=== PATIENT | male | born 1985 | race Caucasian/White ===

== ENCOUNTER 2019-10-20 08:56 | Emergency (ER) | payer BC ==
[2019-10-20] MEDS ORDERED: TORAdol 30 mg Injection ONE (09:09)
[2019-10-20] MEDS ORDERED: Zofran 4 MG/2 ML VIAL ONE (09:09)
[2019-10-20] MEDS ORDERED: Hydromorphone 1 mg/ml Ampule ONE (09:09)
[2019-10-20] MEDS ORDERED: TORAdol 30 mg Injection IV ONE (09:10)
[2019-10-20] MEDS ORDERED: Zofran 4 MG/2 ML VIAL IV ONE (09:10)
[2019-10-20] MEDS ORDERED: Sodium Chloride 0.9% 1000 ML 1,000 ML IV STA (09:12)
[2019-10-20] MEDS ORDERED: Hydromorphone 1 mg/ml Ampule IV ONE (09:14)
[2019-10-20] MEDS ORDERED: Sodium Chloride 0.9% 1000 ML 1,000 ML ONE (09:15)
--- NOTE | 2019-10-20 09:32 | ERPHSYRPT ---
- History of Present Illness Time Seen by Provider: 10/20/19 09:05 Patient Subjective Stated Complaint: Pt woke up around 0730 in severe pain, went to the restroom and had a bowel movement but did not have any relief, pts pain started in his left lateral back and has moved down to his groin and states that it feels like someone is squeezing his testacles Triage Nursing Assessment: Pt brought to the ER by his , pt in severe pain rolling all over the bed holding his testacles, hypertensive, bowel sounds heard in all 4, denies any problems with urinating, bowel movement this am, no hx of kidney stones, rates pain 9.5/10, pale skin Physician History: Patient is a 34-year-old white male with no history of urinary calculi who presents with sudden onset of severe colicky pain in the left flank radiating into the testicular area at 7:40 AM this morning. Timing/Duration: today Activities at Onset: sleep Quality: stabbing Abdominal Pain Onset Location: flank (L) Pain Radiation: flank, groin Severity of Pain-Max: severe Severity of Pain-Current: severe Modifying Factors: Improves With: nothing Associated Symptoms: nausea, testicular pain Previous symptoms: no prior history Allergies/Adverse Reactions: bismuth subsalicylate [From Pepto-Bismol] Allergy (Verified 10/20/19 09:07) - Review of Systems Constitutional: No Fever, No Chills Eyes: No Symptoms Ears, Nose, & Throat: No Symptoms Respiratory: No Cough, No Dyspnea Cardiac: No Chest Pain, No Edema, No Syncope Abdominal/Gastrointestinal: Abdominal Pain, Nausea, No Vomiting, No Diarrhea Genitourinary Symptoms: Flank Pain Musculoskeletal: No Back Pain, No Neck Pain Skin: No Rash Neurological: No Dizziness, No Focal Weakness, No Sensory Changes Psychological: No Symptoms Endocrine: No Symptoms All Other Systems: Reviewed and Negative - Past Medical History Pertinent Past Medical History: No - Past Surgical History Past Surgical History: No - Social History Smoking Status: Current every day smoker Exposure to second hand smoke: Yes Drug Use: none Patient Lives Alone: No - Nursing Vital Signs Nursing Vital Signs: Initial Vital Signs Temperature 97.7 F 10/20/19 08:59 Pulse Rate 85 10/20/19 08:59 Blood Pressure 155/91 10/20/19 08:59 O2 Sat by Pulse Oximetry 100 10/20/19 08:59 Pain Scale Pain Intensity 0 - Physical Exam General Appearance: severe distress, alert Eye Exam: PERRL/EOMI, eyes nml inspection Ears, Nose, Throat Exam: normal ENT inspection, pharynx normal, moist mucous membranes Neck Exam: normal inspection, non-tender, supple, full range of motion Respiratory Exam: normal breath sounds, lungs clear, No respiratory distress Cardiovascular Exam: regular rate/rhythm, normal heart sounds Gastrointestinal/Abdomen Exam: soft, No tenderness, No mass Back Exam: normal inspection, normal range of motion, No CVA tenderness, No vertebral tenderness Extremity Exam: normal inspection, normal range of motion, pelvis stable Neurologic Exam: alert, oriented x 3, cooperative, normal mood/affect, nml cerebellar function, sensation nml, No motor deficits Skin Exam: normal color, warm, dry SpO2: 100 - Course Nursing assessment & vital signs reviewed: Yes - CT Exams Abdomen/Pelvis CT Interpretation: Tele-radiologist Report (Teleradiology says there is a 2 mm stone in the distal left ureter hydronephrosis) Ordered Tests: Active Orders 24 hr Category Date Time Status ABDOMEN AND PELVIS W/0 CONTRAS [CT] Stat Exams 10/20/19 09:13 Taken AMYLASE Stat Lab 10/20/19 09:30 Completed CBC W DIFF Stat Lab 10/20/19 09:30 Completed CMP Stat Lab 10/20/19 09:30 Completed LIPASE Stat Lab 10/20/19 09:30 Completed UA W/RFX UR CULTURE Stat Lab 10/20/19 11:34 Ordered Medication Summary Discontinued Medications Generic Name Dose Route Start Last Admin Trade Name Freq PRN Reason Stop Dose Admin Hydromorphone HCl Confirm 10/20/19 09:09 Hydromorphone 1 Mg/Ml Ampule Administered 10/20/19 09:10 Dose 1 mg .ROUTE .STK-MED ONE Hydromorphone HCl 1 mg 10/20/19 09:14 10/20/19 09:15 Hydromorphone 1 Mg/Ml Ampule IV 10/20/19 09:15 1 mg STAT ONE Administration Sodium Chloride 1,000 mls @ 999 mls/hr 10/20/19 09:12 10/20/19 10:29 Sodium Chloride 0.9% 1000 Ml IV 10/20/19 10:12 Infused .Q1H1M STA Infusion Sodium Chloride Confirm 10/20/19 09:15 Sodium Chloride 0.9% 1000 Ml Administered 10/20/19 09:16 Dose 1,000 mls @ ud .ROUTE .STK-MED ONE Ketorolac Tromethamine Confirm 10/20/19 09:09 Toradol 30 Mg Injection Administered 10/20/19 09:10 Dose 30 mg .ROUTE .STK-MED ONE Ketorolac Tromethamine 30 mg 10/20/19 09:10 10/20/19 09:15 Toradol 30 Mg Injection IV 10/20/19 09:11 30 mg STAT ONE Administration Ondansetron HCl Confirm 10/20/19 09:09 Zofran 4 Mg/2 Ml Vial Administered 10/20/19 09:10 Dose 4 mg .ROUTE .STK-MED ONE Ondansetron HCl 4 mg 10/20/19 09:10 10/20/19 09:15 Zofran 4 Mg/2 Ml Vial IV 10/20/19 09:11 4 mg STAT ONE Administration Lab/Rad Data: Laboratory Result Diagrams 10/20/19 09:30 10/20/19 09:30 Laboratory Results 10/20/19 10/20/19 Range/Units 09:30 09:30 WBC 7.4 (4.0-10.5) K/mm3 RBC 4.88 (4.1-5.6) M/mm3 Hgb 15.6 (12.5-18.0) gm/dl Hct 45.9 (42-50) % MCV 94.1 (78-100) fl MCH 32.0 (26-32) pg MCHC 34.0 (32-36) g/dl RDW 13.4 (11.5-14.0) % Plt Count 266 (150-450) K/mm3 MPV 9.9 (7.5-11.0) fl Gran % 42.8 (36.0-66.0) % Eos # (Auto) 0.20 (0-0.5) Absolute Lymphs (auto) 3.24 (1.0-4.6) Absolute Monos (auto) 0.74 (0.0-1.3) Lymphocytes % 44.0 (24.0-44.0) % Monocytes % 10.1 (0.0-12.0) % Eosinophils % 2.7 (0.00-5.0) % Basophils % 0.4 (0.0-0.4) % Absolute Granulocytes 3.15 (1.4-6.9) Basophils # 0.03 (0-0.4) Sodium 140 (137-145) mmol/L Potassium 4.5 (3.5-5.1) mmol/L Chloride 110 H (98-107) mmol/L Carbon Dioxide 22 (22-30) mmol/L Anion Gap 12.2 (5-15) MEQ/L BUN 17 (9-20) mg/dL Creatinine 0.99 (0.66-1.25) mg/dL Estimated GFR > 60.0 ML/MIN Glucose 124 H (74-106) mg/dL Calcium 9.6 (8.4-10.2) mg/dL Total Bilirubin 0.70 (0.2-1.3) mg/dL AST 24 (17-59) U/L ALT 22 (0-50) U/L Alkaline Phosphatase 51 (38-126) U/L Serum Total Protein 7.5 (6.3-8.2) g/dL Albumin 4.5 (3.5-5.0) g/dL Amylase 74 (30-110) U/L Lipase 84 (23-300) U/L - Progress Progress: improved - Departure Departure Disposition: Home Clinical Impression: Left ureteral stone Condition: Stable Critical Care Time: No Instructions: Kidney Stones (DC) Prescriptions: Hydrocodone/APAP 5-325 Tab^^^ [[place] 5-325 Tablet^^^] 1 tab PO Q6HPRN PRN #10 tablet MDD 6 PRN Reason: Pain Ondansetron HCl [Zofran] 4 mg PO Q6H #10 tablet Tamsulosin HCl 0.4 mg [Flomax 0.4 MG] 0.4 mg PO DAILY #10 cap
[2019-10-20 10:09] LABS: Absolute Neutrophil Ct (ANC) 3.15 (1.4-6.9); BASOPHIL % 0.4 % (0.0-0.4); Basophil (Absolute #) 0.03 (0-0.4); Eosinophil % 2.7 % (0.00-5.0); Hematocrit 45.9 % (42-50); Hemoglobin 15.6 gm/dl (12.5-18.0); Lymphocyte (Absolute #) 3.24 (1.0-4.6); Mean Cell Volume 94.1 fl (78-100); Mean Platelet Volume 9.9 fl (7.5-11.0); Monocyte (Absolute #) 0.74 (0.0-1.3); Monocytes % 10.1 % (0.0-12.0); Neutrophil % 42.8 % (36.0-66.0); Platelet Count 266 K/mm3 (150-450); Red Blood Count 4.88 M/mm3 (4.1-5.6); Red Cell Distribution Width 13.4 % (11.5-14.0); White Blood Count 7.4 K/mm3 (4.0-10.5)
[2019-10-20 10:22] LABS: ALBUMIN 4.5 g/dL (3.5-5.0); ALKALINE PHOSPHATASE 51 U/L (38-126); AMYLASE 74 U/L (30-110); ANION GAP 12.2 MEQ/L (5-15); BLOOD UREA NITROGEN 17 mg/dL (9-20); CHLORIDE 110 mmol/L (98-107); Calcium 9.6 mg/dL (8.4-10.2); Carbon Dioxide 22 mmol/L (22-30); Creatinine 1 0.99 mg/dL (0.66-1.25); Glucose 124 mg/dL (74-106); LIPASE 84 U/L (23-300); Potassium 4.5 mmol/L (3.5-5.1); SGOT/AST 24 U/L (17-59); SGPT/ALT 22 U/L (0-50); SODIUM 140 mmol/L (137-145); Total Protein 7.5 g/dL (6.3-8.2)
[2019-10-20 11:53] LABS: Appearance CLEAR (CLEAR); Bilirubin NEGATIVE (NEGATIVE); Blood NEGATIVE Ery/ul (0-5); Glucose NEGATIVE (NEGATIVE); Ketones NEGATIVE (NEGATIVE); Leukocyte Esterase NEGATIVE (NEGATIVE); Mucus SLIGHT /HPF (NEGATIVE); Nitrite NEGATIVE (NEGATIVE); Protein,Urine Dip 30 (Negative); Specific Gravity 1.026 (1.005-1.025); Urobilinogen 2 mg/dL (0-1); WBC 0-2 /HPF (0-5)
[2019-10-20 11:58] VITALS: BP 108/72; PULSE 68; O2SAT 98
[2019-10-20 12:02] LABS: Bacteria NONE SEEN /HPF (NEGATIVE)
--- NOTE | 2019-10-20 17:54 | XRAY ---
Indication: Left back/flank pain. Nausea and vomiting. Multiple contiguous axial images obtained through the abdomen and pelvis without contrast as ordered. Comparison: None Lung bases demonstrates bibasilar dependent atelectasis, left greater than right. Small right lower lobe bleb. No infiltrate or effusion. Heart is not enlarged. Noncontrasted stomach and bowel loops appear nonobstructed. Normal appendix. Minimal sigmoid diverticulosis. No free fluid/air. Calcified splenic granulomas. Punctate calculus left UVJ with proximal left ureter slightly prominent and minimal hydronephrosis consistent with partial obstructive uropathy. No perinephric fluid. Right kidney demonstrates faint nephrocalcinosis without hydronephrosis or hydroureter. Remaining liver, gallbladder, pancreas, spleen, adrenal glands, kidneys, ureters, and bladder appear unremarkable for noncontrast exam. Minimal aortic calcifications without AAA. Osseous structures intact. Impression: 1. Left UVJ punctate calculus using minimal obstructive uropathy. Incidental faint right nephrocalcinosis. 2. Remaining CT abdomen/pelvis without contrast exam is negative. Comment: Preliminary interpretation was made by [facility]. No critical discrepancy.
== END 2019-10-20 12:10 | disposition home or self-care (01) ==
LOC: ED 08:56
DX: N20.1 Calculus of ureter (principal); I10 Essential (primary) hypertension; R11.0 Nausea; N50.819 Testicular pain, unspecified; R10.9 Unspecified abdominal pain
CPT/HCPCS: 36000; 36415; 74176; 80053; 81001; 82150; 83690; 85025; 96360; 96374; 96375; 99284; J1170; J1885; J2405